=== PATIENT | male | born 1950 | race Caucasian/White ===

== ENCOUNTER 2016-12-12 10:55 | Inpatient (IN) | payer OTHER ==
[~2016-12-12] VITALS: Ht 184.2 cm; Wt 82.1 kg
[2016-12-12] VITALS (35 sets, daily range): BP systolic 108–195; BP diastolic 58–101; PULSE 54–84; RESP 13–25; Ht 184.2 cm; Wt 82.1 kg
--- NOTE | 2016-12-12 07:38 | PREOPHP ---
DATE OF ADMISSION: 12/12/2016 The patient was originally seen in our office for evaluation of low back pain, pain going to the hip s and to the thighs. The patient was having difficulty with ambulation, was having difficulty sitti ng down for a period of time and could not walk more than a block. The patient was diagnosed with s evere stenosis at L3-L4. Conservative management was offered to the patient, physical therapy, as w ell as pain management, and the patient also receive epidural injections of the lumbar spine without much relief. The patient's condition was getting worse, pain was increasing, and the patient was h aving difficulty with activities of daily living. The only option left at this point was for surgic al intervention in the form of lumbar 3, lumbar 4 laminectomy with decompression of the lumbar spine . This procedure was described to the patient in great detail. The patient has consented and wants to proceed with surgical intervention. PAST MEDICAL HISTORY: Per chart. SURGICAL HISTORY: Per chart. SOCIAL HISTORY: Denies the use of drugs, alcohol or tobacco. ALLERGIES: Per chart. HOME MEDICATIONS: Per chart. FAMILY HISTORY: Unremarkable. REVIEW OF SYSTEMS: A 10-point review of systems was conducted. Pertinent positives per HPI, otherw ise negative. PHYSICAL EXAMINATION: GENERAL: The patient is awake, alert, oriented, follows commands properly. HEENT: Head atraumatic, normocephalic. Eyes, sclerae are clear, nonicteric. EOMs intact. No sign s of unremarkable. NECK: Supple. No thyromegaly. PULMONARY: No dyspnea, tachypnea. CARDIOVASCULAR: No JVD, no pedal edema. ABDOMEN: Soft, without guarding during exam. NEUROLOGIC: Awake, alert oriented. GCS 15. Cranial nerves intact. UPPER EXTREMITIES: Moves equally. Sensation intact. LOWER EXTREMITIES: Examination of both flexion and extension of the lumbar spine the patient has low back pain. Flexion/extension of the hips the patient develops low back pain. Knee flexion/extension is intact, as well as ankle flexion and ex tension. Bilaterally strength is equal. Sensation is intact. MRI of the lumbar spine dated 10/25/2016 shows severe stenosis of L3-L4. IMPRESSION: Lumbar 3, lumbar 4 severe stenosis with mechanical low back pain. RECOMMENDATION: The patient to undergo surgical intervention in the form of lumbar 3, lumbar 4 finley inectomy with possible fusion and the procedure was described to the patient in great detail. The complications were explained extensively. The patient wants to go ahead and proceed. Thereafte r the patient will be admitted to the hospital for further care and management. Dictated By: ROLAN LEGGETT/ARUN Conf#: [id number] DID#: [id number]
[2016-12-12] MEDS ORDERED: ROCURONIUM 50 MG INJ ONE (11:42)
[2016-12-12] MEDS ORDERED: CEFAZOLIN 1 GM INJ ONE (11:42)
[2016-12-12] MEDS ORDERED: SUCCINYLCHOLINE CHLORIDE 100 MG/5 ML SYG IV ONE (11:42)
[2016-12-12] MEDS ORDERED: PROPOFOL 100 ML ONE (11:42)
[2016-12-12] MEDS ORDERED: MIDAZOLAM 1 MG/ML 2 ML INJ ONE (11:43)
[2016-12-12] MEDS ORDERED: FENTAnyl 50 MCG/ML VIAL ONE (11:44)
[2016-12-12] MEDS ORDERED: LACO100T3 PO (12:06)
[2016-12-12] MEDS ORDERED: GELATIN SIZE 100 SPONGE ONE (12:21)
[2016-12-12] MEDS ORDERED: THROMBIN 5000 UNIT VIAL ONE (12:22)
[2016-12-12] MEDS ORDERED: LIDOCAINE 2%/EPI (MDV) 20ML INJ ONE (12:22)
[2016-12-12] MEDS ORDERED: POLYMYXIN/BACITRACIN 1L IRRIG ONE (12:22)
[2016-12-12 12:39] LABS: ADD SCAN DIFF NO
[2016-12-12 12:50] LABS: BASOPHILS % 0.7 % (0.0-2.0); EOSINOPHILS # 0.1 10^3/ul (0.0-0.5); EOSINOPHILS % 1.8 % (0.0-7.0); HEMATOCRIT 36.6 % (42.0-52.0); HEMOGLOBIN 12.7 g/dl (14.0-18.0); LYMPHOCYTES # 1.2 10^3/ul (0.8-2.9); LYMPHOCYTES % 25.6 % (15.0-51.0); MEAN CORPUSCULAR HEMOGLOBIN 32.9 pg (29.0-33.0); MEAN CORPUSCULAR HGB CONC 34.7 g/dl (32.0-37.0); MEAN CORPUSCULAR VOLUME 94.8 fl (82.0-101.0); MEAN PLATELET VOLUME 10.1 fl (7.4-10.4); MONOCYTE # 0.4 10^3/ul (0.3-0.9); MONOCYTES % 9.4 % (0.0-11.0); NEUTROPHIL # 2.9 10^3/ul (1.6-7.5); NEUTROPHILS % 62.3 % (39.0-77.0); PLATELET COUNT 120 10^3/UL (140-415); RED BLOOD COUNT 3.86 10^6/ul (4.70-6.10); RED CELL DISTRIBUTION WIDTH 12.8 % (11.5-14.5); WHITE BLOOD COUNT 4.6 10^3/ul (4.8-10.8)
[2016-12-12 12:56] LABS: INR 1.15; PROTIME 14.7 Sec (12.2-14.2); PT RATIO 1.1
[2016-12-12 12:56] LABS: ADD UMIC YES; UR ASCORBIC ACID NEGATIVE (NEGATIVE); UR BILIRUBIN (Dip) NEGATIVE (NEGATIVE); UR BLOOD (Dip) NEGATIVE (NEGATIVE); UR CLARITY CLEAR (CLEAR); UR COLOR YELLOW (YELLOW); UR GLUCOSE (Dip) NEGATIVE (NEGATIVE); UR KETONES (Dip) NEGATIVE (NEGATIVE); UR LEUKOCYTE ESTERASE (Dip) NEGATIVE Leu/ul (NEGATIVE); UR NITRITE (Dip) NEGATIVE (NEGATIVE); UR RBC 1 /HPF (0-5); UR SPECIFIC GRAVITY (Dip) 1.019 (1.003-1.030); UR TOTAL PROTEIN (Dip) 1+ mg/dl (NEGATIVE); UR UROBILINOGEN (Dip) NEGATIVE (NEGATIVE)
[2016-12-12 12:57] LABS: PARTIAL THROMBOPLASTIN TIME 27.5 Sec (25.0-35.0)
[2016-12-12] MEDS ORDERED: METOCLOPRAMIDE 10 MG INJ ONE (14:45)
[2016-12-12] MEDS ORDERED: ACETAMINOPHEN 1000MG/100ML IV 100 ML ONE (14:45)
[2016-12-12] MEDS ORDERED: DEXAMETHASONE 4 MG/ML 1 ML INJ ONE (14:45)
[2016-12-12] MEDS ORDERED: ONDANSETRON 4 MG INJ ONE (14:45)
[2016-12-12] MEDS ORDERED: NEOSTIGMINE 3 MG/3 ML SYRINGE ONE (15:13)
[2016-12-12] MEDS ORDERED: GLYCOPYRROLATE 1 MG INJ ONE (15:13)
[2016-12-12] MEDS ORDERED: DIPHENHYDRAMINE 50 MG INJ IV PRN (15:30)
[2016-12-12] MEDS ORDERED: MEPERIDINE 25 MG INJ IV PRN (15:30)
[2016-12-12] MEDS ORDERED: HYDROmorphONE (0.2 MG/ML) 10ML SYG IV PRN ×3 (15:30)
[2016-12-12] MEDS ORDERED: ONDANSETRON 4 MG INJ IV PRN ×2 (15:30)
[2016-12-12] MEDS ORDERED: EPHEDrine SULFATE 50 MG/5 ML SYG IV PRN (15:30)
[2016-12-12] MEDS ORDERED: METOCLOPRAMIDE 10 MG INJ IV PRN (15:30)
[2016-12-12] MEDS ORDERED: morphine 2 MG INJ IV PRN (15:30)
[2016-12-12] MEDS ORDERED: LABETALOL HCL 20MG INJ IV PRN (15:30)
[2016-12-12] MEDS ORDERED: morphine (1 MG/ML) 10ML SYRINGE IV PRN ×2 (15:30)
[2016-12-12] MEDS ORDERED: ALBUMIN HUMAN 5% 250 ML IV PRN (15:30)
[2016-12-12] MEDS ORDERED: ACETAMINOPHEN 325 MG TAB PO PRN (16:00)
--- NOTE | 2016-12-12 16:34 | RADRPT ---
PROCEDURE: Intraoperative fluoroscopy. CLINICAL INDICATION: Intraoperative fluoroscopy during lumbar spine surgery. TECHNIQUE: 7 spot intraoperative fluoroscopic images were provided. The images were reviewed on a high-resolution PACS workstation. COMPARISON: None available FINDINGS: Multiple spot intraoperative fluoroscopic views were provided during lumbar spine surgery. The imag es demonstrate and the cephalic probe at the level of L4. Subsequent images demonstrate postoperati ve changes at the L3-4 level. The total fluoroscopy time was 15.1 seconds. IMPRESSION: 1. Multiple spot intraoperative fluoroscopic views during lumbar spine surgery were provided. 2. Please see operative report of the same day for further information. RPTAT: HGAS .Manjinder Luna MD, Date Time Electronically viewed and signed by .Manjinder Luna MD, MD on 12/12/2016 16:34 .S/
--- NOTE | 2016-12-12 16:40 | HP ---
DATE OF ADMISSION: 12/12/2016 CHIEF COMPLAINT AND HISTORY OF PRESENT ILLNESS: History is obtained from medical record as the enedina ent is lethargic. The patient is a 66-year-old gentleman with a history of seizure disorder, stable on Vimpat. The patient had been seeing Dr. Lorenzo Murillo as an outpatient for lower back pain goi ng on for 3 years. The pain was radiating to bilateral lower extremities. Patient was diagnosed wi th severe stenosis of L3 to L4. The patient initially was treated with physical therapy and pain m anagement. However, the patient also received epidural injection. The patient continues to remain symptomatic and started just getting worse. Patient was having difficulty in walking. The patient was brought in to hospital today and underwent L3 to L4 laminectomy. The patient postoperatively is lethargic, although breathing comfortably. Vital signs have remained stable. No reported vomiting , no reported seizures since surgery. No reported temperature spike. The patient does not have cristina ma in any extremities. REVIEW OF SYSTEMS: Limited. PAST SURGICAL HISTORY: Status post tonsillectomy. FAMILY HISTORY: Mother at age 85 of natural causes. Father at age 86, had martell ry artery disease. SOCIAL HISTORY: Smokes cigars intermittently. ALLERGIES: NONE. MEDICATIONS: Prior to admission: 1. Ibuprofen 800 mg t.i.d. as needed. 2. Vimpat ____ mg b.i.d. PHYSICAL EXAMINATION: GENERAL: The patient is lethargic. VITAL SIGNS: Temperature 98.5, pulse 71, respirations 16, blood pressure 168/96, O2 saturation 97% on room air. HEENT: No eye discharge or redness. Oropharynx examination deferred due to face mask. NECK: No mass, no JVD. LUNGS: Clear to auscultation. CARDIOVASCULAR: S1, S2 normal. No murmur. ABDOMEN: Soft, nondistended, no palpable mass. EXTREMITIES: No leg edema. Pedal pulses palpable. NEUROLOGIC: The patient is lethargic and therefore detailed neuro examination was deferred. LABORATORY DATA: WBC 4.6, hemoglobin 12.7, platelets 120. Chemistry: Sodium 137, potassium level prior to surgery was not available in medical record. Glucose 91. AST 63, ALT 76. EKG normal sinu s rhythm, no acute ST or T changes. Chest x-ray unremarkable. IMPRESSION: 1. Magnetic resonance angiogram proven severe stenosis of L3 to L4 with chronic low back pain statu s post L3 and L4 laminectomy. 2. Seizure disorder. PLAN: The patient admitted on medical floor. Patient will be started on IV fluid and will be start ed on clear liquid diet, advance as tolerated. The patient will have SCD for DVT prophylaxis and wi ll receive IV cefazolin as per protocol. Will use clonidine on p.r.n. basis for hypertension, IV mo rphine, Tylenol and [place] for pain control, depending upon severity. We will continue to follow him from a medical standpoint. Dictated By: CATHLEEN PUENTE/NTS Conf#: [id number] DID#: [id number]
[2016-12-12] MEDS ORDERED: hydrALAzine 20 MG INJ ONE (16:50)
[2016-12-12] MEDS: DEXTROSE 5%-LR 1,000 ML IV SCH (18:19)
[2016-12-12] MEDS: LACOSAMIDE (100 MG/10 ML PO SYR) PO SCH (21:26)
[2016-12-12] MEDS: CEFAZOLIN 1 GM/50 ML (PMX) 50 ML IVPB SCH (21:53)
[2016-12-12] MEDS: HYDROCODONE/APAP (10/325) TAB PO PRN (23:51)
[2016-12-13 01:00] VITALS: BP 109/56; PULSE 68
[2016-12-13 02:00] VITALS: BP 108/57; PULSE 63
[2016-12-13 05:38] VITALS: BP 116/63; PULSE 63; RESP 17
[2016-12-13 06:14] LABS: ADD SCAN DIFF NO
[2016-12-13 06:18] LABS: BASOPHILS % 0.1 % (0.0-2.0); HEMATOCRIT 36.5 % (42.0-52.0); HEMOGLOBIN 12.4 g/dl (14.0-18.0); LYMPHOCYTES # 0.8 10^3/ul (0.8-2.9); LYMPHOCYTES % 7.8 % (15.0-51.0); MEAN CORPUSCULAR HEMOGLOBIN 32.7 pg (29.0-33.0); MEAN CORPUSCULAR VOLUME 96.3 fl (82.0-101.0); MEAN PLATELET VOLUME 10.6 fl (7.4-10.4); MONOCYTE # 0.8 10^3/ul (0.3-0.9); MONOCYTES % 7.5 % (0.0-11.0); NEUTROPHIL # 8.6 10^3/ul (1.6-7.5); NEUTROPHILS % 84.2 % (39.0-77.0); PLATELET COUNT 131 10^3/UL (140-415); RED BLOOD COUNT 3.79 10^6/ul (4.70-6.10); RED CELL DISTRIBUTION WIDTH 12.9 % (11.5-14.5); WHITE BLOOD COUNT 10.2 10^3/ul (4.8-10.8)
[2016-12-13] MEDS: CEFAZOLIN 1 GM/50 ML (PMX) 50 ML IVPB SCH ×3 (06:32→21:31)
[2016-12-13] MEDS: DEXTROSE 5%-LR 1,000 ML IV SCH ×3 (06:36→19:59)
[2016-12-13 06:52] LABS: ALBUMIN 4.1 g/dl (3.3-4.9); ALBUMIN/GLOBULIN RATIO 1.36; BILIRUBIN,INDIRECT 0.4 mg/dl (0-1.1); BILIRUBIN,TOTAL 0.4 mg/dl (0.2-1.3); CALCIUM 8.8 mg/dl (8.4-10.2); CREATININE 0.72 mg/dl (0.61-1.24); TOTAL PROTEIN 7.1 g/dl (6.1-8.1)
[2016-12-13 07:00] VITALS: BP 115/60; RESP 20
[2016-12-13] MEDS: LACOSAMIDE (100 MG/10 ML PO SYR) PO SCH ×2 (08:44→20:55)
[2016-12-13] MEDS: HYDROCODONE/APAP (10/325) TAB PO PRN ×2 (08:48→17:12)
--- NOTE | 2016-12-13 19:24 | PN ---
Date/Time of Note Date/Time of Note DATE: 12/13/16 TIME: 19:22 Assessment/Plan VTE Prophylaxis VTE Prophylaxis Intervention: SCD's Lines/Catheters IV Catheter Type (from Nrs): Peripheral IV Urinary Cath still in place: No Assessment/Plan Chief Complaint/Hosp Course Patient's complains of pain, however able to ambulate with no problems. Problems: Assessment/Plan 1. Severe stenosis of L3 to L4 with chronic low back pain status post L3 and L4 laminectomy. Continue [place] and morphine for pain, continue postoperative antibiotics follow-up surgical recommendation. 2. Seizure disorder. Continue Vimpat. Further recommendations based on clinical course. Plan of care discussed with Dr. Lee. Exam/Review of Systems Vital Signs Vitals Vital Signs Date Time Temp Pulse Resp B/P Pulse Ox O2 Delivery O2 Flow Rate FiO2 12/13/16 07:00 98.3 60 20 115/60 97 12/13/16 05:38 Room Air Intake and Output 12/12/16 12/12/16 12/13/16 15:00 23:00 07:00 Intake Total 1300 ml 870 ml Output Total 200 ml 1100 ml Balance 1100 ml -230 ml Exam Constitutional: alert, oriented Head: atraumatic, normocephalic Neck: non-tender, supple Respiratory: normal air movement Cardiovascular: nl pulses Gastrointestinal: non-tender, soft Musculoskeletal: other (Low back surgical incision was drain) Extremities: normal pulses Neurological: nl mental status Results Result Diagram: 12/13/16 0440 12/13/16 0440 Results 24 hrs Laboratory Tests Test 12/13/16 04:40 12/13/16 06:38 White Blood Count 10.2 # Red Blood Count 3.79 L Hemoglobin 12.4 L Hematocrit 36.5 L Mean Corpuscular Volume 96.3 Mean Corpuscular Hemoglobin 32.7 Mean Corpuscular Hemoglobin Concent 34.0 Red Cell Distribution Width 12.9 Platelet Count 131 L Mean Platelet Volume 10.6 H Neutrophils % 84.2 H Lymphocytes % 7.8 L Monocytes % 7.5 Eosinophils % 0.0 Basophils % 0.1 Nucleated Red Blood Cells % 0.0 Neutrophils # 8.6 H Lymphocytes # 0.8 Monocytes # 0.8 Eosinophils # 0.0 Basophils # 0.0 Nucleated Red Blood Cells # 0.0 Sodium Level 139 Potassium Level 4.0 Chloride Level 103 Carbon Dioxide Level 27 Anion Gap 13 Blood Urea Nitrogen 13 Creatinine 0.72 Glucose Level 143 Calcium Level 8.8 Total Bilirubin 0.4 Direct Bilirubin 0.00 Indirect Bilirubin 0.4 Aspartate Amino Transf (AST/SGOT) 56 H Alanine Aminotransferase (ALT/SGPT) 68 Alkaline Phosphatase 46 Total Protein 7.1 Albumin 4.1 Globulin 3.00 Albumin/Globulin Ratio 1.36 Lab Scanned Report REFERENCE LAB Medications Medications Current Medications Cefazolin Sodium (Ancef 1 Gm/50 ml (Pmx)) 50 ml @ 100 mls/hr Q8 IVPB Last administered on 12/13/16 14:03; Admin Dose 100 MLS/HR; Start 12/12/16 at 22:00 ; Stop 12/13/16 at 22:00 Acetaminophen/ Hydrocodone Bitart ([place] (10)) 1 tab Q4H PRN PO PAIN Last administered on 12/13/16 17:12; Admin Dose 1 TAB; Start 12/12/16 at 15:30 Morphine Sulfate 2 mg 2 mg Q3H PRN IV severe pain; Start 12/12/16 at 15:30 Dextrose/Lactated Ringer's (D5-Lr) 1,000 ml @ 75 mls/hr [id number] IV Last administered on 12/13/16 06:36; Admin Dose 75 MLS/HR; Start 12/12/16 at 15:30 Ondansetron HCl (Zofran Inj) 4 mg Q6H PRN IV NAUSEA AND/OR VOMITING; Start at 15:30 Clonidine (Catapres) 0.1 mg Q4H PRN PO sbp>160 Last administered on 12/12/16 18:28; Admin Dose 0.1 MG; Start 12/12/16 at 15:30 Lacosamide (Vimpat Liq) 100 mg BID PO Last administered on 12/13/16 08:44; Admin Dose 100 MG; Start 12/12/16 at 21:00 Acetaminophen (Tylenol Tab) 650 mg Q4H PRN PO PAIN AND OR ELEVATED TEMP; Start 12/12/16 at 16:00 GRAYSON MUÑOZ Dec 13, 2016 19:24
[2016-12-13 19:45] VITALS: BP 150/80; RESP 18
[2016-12-14] VITALS: BP 150/90; RESP 18
[2016-12-14] MEDS: HYDROCODONE/APAP (10/325) TAB PO PRN ×5 (00:24→20:59)
[2016-12-14 05:09] LABS: ADD SCAN DIFF NO
[2016-12-14 05:16] LABS: BASOPHILS % 0.4 % (0.0-2.0); EOSINOPHILS # 0.1 10^3/ul (0.0-0.5); EOSINOPHILS % 0.6 % (0.0-7.0); HEMATOCRIT 37.9 % (42.0-52.0); HEMOGLOBIN 12.7 g/dl (14.0-18.0); LYMPHOCYTES # 1.8 10^3/ul (0.8-2.9); LYMPHOCYTES % 22.2 % (15.0-51.0); MEAN CORPUSCULAR HEMOGLOBIN 32.3 pg (29.0-33.0); MEAN CORPUSCULAR HGB CONC 33.5 g/dl (32.0-37.0); MEAN CORPUSCULAR VOLUME 96.4 fl (82.0-101.0); MEAN PLATELET VOLUME 10.5 fl (7.4-10.4); MONOCYTES % 11.9 % (0.0-11.0); NEUTROPHIL # 5.2 10^3/ul (1.6-7.5); NEUTROPHILS % 64.5 % (39.0-77.0); PLATELET COUNT 118 10^3/UL (140-415); RED BLOOD COUNT 3.93 10^6/ul (4.70-6.10); RED CELL DISTRIBUTION WIDTH 12.8 % (11.5-14.5); WHITE BLOOD COUNT 8.1 10^3/ul (4.8-10.8)
[2016-12-14 05:44] LABS: CALCIUM 9.3 mg/dl (8.4-10.2); CREATININE 0.72 mg/dl (0.61-1.24); POTASSIUM 3.6 mmol/L (3.5-5.1)
[2016-12-14 07:00] VITALS: BP 159/92; RESP 20
[2016-12-14] MEDS: LACOSAMIDE (100 MG/10 ML PO SYR) PO SCH ×2 (08:40→21:00)
--- NOTE | 2016-12-14 08:58 | CONS ---
Date/Time of Note Date/Time of Note DATE: 12/14/16 TIME: 08:57 Assessment/Plan Assessment/Plan Additional Assessment/Plan seen/examined awake/alert/follows/moves all/sensation intact pt ambulates ok drain dced cleared to go home instructions given outpt fu 1 week Consultation Date/Type/Reason Admit Date/Time Dec 12, 2016 at 11:12 Initial Consult Date Exam/Review of Systems Vital Signs Vitals Vital Signs Date Time Temp Pulse Resp B/P Pulse Ox O2 Delivery O2 Flow Rate FiO2 12/14/16 07:00 98.4 56 20 159/92 97 12/13/16 05:38 Room Air Intake and Output 12/13/16 12/13/16 12/14/16 15:00 23:00 07:00 Intake Total 50 ml 2225 ml 1000 ml Output Total 890 ml 0 ml Balance 50 ml 1335 ml 1000 ml Results Result Diagram: 12/14/16 0437 12/14/16 0437 Results 24 hrs Laboratory Tests Test 12/14/16 04:37 White Blood Count 8.1 # Red Blood Count 3.93 L Hemoglobin 12.7 L Hematocrit 37.9 L Mean Corpuscular Volume 96.4 Mean Corpuscular Hemoglobin 32.3 Mean Corpuscular Hemoglobin Concent 33.5 Red Cell Distribution Width 12.8 Platelet Count 118 L Mean Platelet Volume 10.5 H Neutrophils % 64.5 Lymphocytes % 22.2 Monocytes % 11.9 H Eosinophils % 0.6 Basophils % 0.4 Nucleated Red Blood Cells % 0.0 Neutrophils # 5.2 Lymphocytes # 1.8 Monocytes # 1.0 H Eosinophils # 0.1 Basophils # 0.0 Nucleated Red Blood Cells # 0.0 Sodium Level 139 Potassium Level 3.6 Chloride Level 103 Carbon Dioxide Level 29 Anion Gap 11 Blood Urea Nitrogen 12 Creatinine 0.72 Glucose Level 109 Calcium Level 9.3 Medications Medications Current Medications Acetaminophen/ Hydrocodone Bitart ([place] (10/325)) 1 tab Q4H PRN PO PAIN Last administered on 12/14/16t 06:35; Admin Dose 1 TAB; Start 12/12/16 at 15:30 Morphine Sulfate 2 mg 2 mg Q3H PRN IV severe pain; Start 12/12/16 at 15:30 Dextrose/Lactated Ringer's (D5-Lr) 1,000 ml @ 75 mls/hr [id number] IV Last administered on 12/13/16 19:59; Admin Dose 75 MLS/HR; Start 12/12/16 at 15:30 Ondansetron HCl (Zofran Inj) 4 mg Q6H PRN IV NAUSEA AND/OR VOMITING; Start at 15:30 Clonidine (Catapres) 0.1 mg Q4H PRN PO sbp>160 Last administered on 12/12/16 18:28; Admin Dose 0.1 MG; Start 12/12/16 at 15:30 Lacosamide (Vimpat Liq) 100 mg BID PO Last administered on 12/14/16 08:40; Admin Dose 100 MG; Start 12/12/16 at 21:00 Acetaminophen (Tylenol Tab) 650 mg Q4H PRN PO PAIN AND OR ELEVATED TEMP; Start 12/12/16 at 16:00 JERMAINE LIMA PA-C Dec 14, 2016 08:58
--- NOTE | 2016-12-14 12:35 | PN ---
Date/Time of Note Date/Time of Note DATE: 12/14/16 TIME: 12:34 Assessment/Plan VTE Prophylaxis VTE Prophylaxis Intervention: other Lines/Catheters IV Catheter Type (from Nrsg): Peripheral IV Urinary Cath still in place: No Assessment/Plan Chief Complaint/Hosp Course 1. Severe stenosis of L3 to L4 with chronic low back pain status post L3 and L4 laminectomy. Continue [place] and morphine for pain, continue postoperative antibiotics follow-up surgical recommendation. 2. Seizure disorder. Continue Vimpat. Problems: Subjective 24 Hr Interval Summary Free Text/Dictation Patient still has some pain, feels that he will be able to go home tomorrow Exam/Review of Systems Vital Signs Vitals Vital Signs Date Time Temp Pulse Resp B/P Pulse Ox O2 Delivery O2 Flow Rate FiO2 12/14/16 07:00 98.4 56 20 159/92 97 12/13/16 05:38 Room Air Intake and Output 12/13/16 12/13/16 12/14/16 15:00 23:00 07:00 Intake Total 50 ml 2225 ml 1000 ml Output Total 890 ml 0 ml Balance 50 ml 1335 ml 1000 ml Exam Constitutional: well developed Head: atraumatic, normocephalic Neck: supple Respiratory: clear to auscultation Cardiovascular: regular rate and rhythm Gastrointestinal: non-tender, soft Extremities: normal pulses Results Result Diagram: 12/14/16 0437 12/14/16 0437 Results 24 hrs Laboratory Tests Test 12/14/16 04:37 White Blood Count 8.1 # Red Blood Count 3.93 L Hemoglobin 12.7 L Hematocrit 37.9 L Mean Corpuscular Volume 96.4 Mean Corpuscular Hemoglobin 32.3 Mean Corpuscular Hemoglobin Concent 33.5 Red Cell Distribution Width 12.8 Platelet Count 118 L Mean Platelet Volume 10.5 H Neutrophils % 64.5 Lymphocytes % 22.2 Monocytes % 11.9 H Eosinophils % 0.6 Basophils % 0.4 Nucleated Red Blood Cells % 0.0 Neutrophils # 5.2 Lymphocytes # 1.8 Monocytes # 1.0 H Eosinophils # 0.1 Basophils # 0.0 Nucleated Red Blood Cells # 0.0 Sodium Level 139 Potassium Level 3.6 Chloride Level 103 Carbon Dioxide Level 29 Anion Gap 11 Blood Urea Nitrogen 12 Creatinine 0.72 Glucose Level 109 Calcium Level 9.3 Medications Medications Current Medications Acetaminophen/ Hydrocodone Bitart ([place] (10)) 1 tab Q4H PRN PO PAIN Last administered on 12/14/16 06:35; Admin Dose 1 TAB; Start 12/12/16 at 15:30 Morphine Sulfate 2 mg 2 mg Q3H PRN IV severe pain; Start 12/12/16 at 15:30 Dextrose/Lactated Ringer's (D5-Lr) 1,000 ml @ 75 mls/hr [id number] IV Last administered on 12/13/16 19:59; Admin Dose 75 MLS/HR; Start 12/12/16 at 15:30 Ondansetron HCl (Zofran Inj) 4 mg Q6H PRN IV NAUSEA AND/OR VOMITING; Start at 15:30 Clonidine (Catapres) 0.1 mg Q4H PRN PO sbp>160 Last administered on 12/12/16 18:28; Admin Dose 0.1 MG; Start 12/12/16 at 15:30 Lacosamide (Vimpat Liq) 100 mg BID PO Last administered on 12/14/16 08:40; Admin Dose 100 MG; Start 12/12/16 at 21:00 Acetaminophen (Tylenol Tab) 650 mg Q4H PRN PO PAIN AND OR ELEVATED TEMP; Start 12/12/16 at 16:00 ANDRÉS MORROW Dec 14, 2016 12:34
[2016-12-14 19:25] VITALS: BP 172/102; RESP 18
[2016-12-15] VITALS: BP 115/63; RESP 18
[2016-12-15] MEDS: HYDROCODONE/APAP (10/325) TAB PO PRN ×2 (08:15→16:43)
[2016-12-15 08:53] VITALS: BP 151/87; RESP 20
[2016-12-15] MEDS: LACOSAMIDE (100 MG/10 ML PO SYR) PO SCH ×2 (09:31→20:40)
--- NOTE | 2016-12-15 12:29 | PN ---
Date/Time of Note Date/Time of Note DATE: 12/15/16 TIME: 12:28 Assessment/Plan VTE Prophylaxis VTE Prophylaxis Intervention: other Lines/Catheters IV Catheter Type (from Nrsg): [place] Urinary Cath still in place: No Assessment/Plan Chief Complaint/Hosp Course 1. Severe stenosis of L3 to L4 with chronic low back pain status post L3 and L4 laminectomy. Continue [place] and morphine for pain, continue postoperative antibiotics follow-up surgical recommendation. 2. Seizure disorder. Continue Vimpat. Problems: Subjective 24 Hr Interval Summary Free Text/Dictation Patient has pain in lower back still Exam/Review of Systems Vital Signs Vitals Vital Signs Date Time Temp Pulse Resp B/P Pulse Ox O2 Delivery O2 Flow Rate FiO2 12/15/16 08:53 98.7 78 20 151/87 97 12/13/16 05:38 Room Air Intake and Output 12/14/16 12/14/16 12/15/16 15:00 23:00 07:00 Intake Total 1000 ml 750 ml 450 ml Output Total 550 ml Balance 450 ml 750 ml 450 ml Exam Constitutional: well developed Head: atraumatic, normocephalic Neck: supple Respiratory: clear to auscultation Cardiovascular: regular rate and rhythm Gastrointestinal: non-tender, soft Extremities: normal pulses Results Result Diagram: 12/14/1643612/14/16436 Medications Medications Current Medications Acetaminophen/ Hydrocodone Bitart ([place] (10/325)) 1 tab Q4H PRN PO PAIN Last administered on 12/15/16 08:15; Admin Dose 1 TAB; Start 12/12/16 at 15:30 Morphine Sulfate (morphine) 2 mg Q3H PRN IV severe pain; Start 12/12/16 at 15: 30 Ondansetron HCl (Zofran Inj) 4 mg Q6H PRN IV NAUSEA AND/OR VOMITING; Start at 15:30 Clonidine (Catapres) 0.1 mg Q4H PRN PO sbp>160 Last administered on 12/14/16 21:00; Admin Dose 0.1 MG; Start 12/12/16 at 15:30 Lacosamide (Vimpat Liq) 100 mg BID PO Last administered on 12/15/16 09:31; Admin Dose 100 MG; Start 12/12/16 at 21:00 Acetaminophen (Tylenol Tab) 650 mg Q4H PRN PO PAIN AND OR ELEVATED TEMP; Start 12/12/16 at 16:00 ANDRÉS MORROW Dec 15, 2016 12:29
[2016-12-15 20:33] VITALS: BP 134/77; RESP 18
[2016-12-16 08:20] VITALS: BP 153/84; RESP 22
[2016-12-16] MEDS: LACOSAMIDE (100 MG/10 ML PO SYR) PO SCH (08:55)
[2016-12-16] MEDS ORDERED: HYDR-906 PO (17:02)
--- NOTE | 2016-12-20 20:30 | DS ---
Date/Time of Note Date/Time of Note DATE: 12/20/16 TIME: 20:28 Discharge Summary Admission/Discharge Info Admit Date/Time Dec 12, 2016 at 11:12 Discharge Date/Time Dec 16, 2016 at 19:20 Discharge Diagnosis - Severe stenosis of L3 to L4 with chronic low back pain status post L3 and L4 laminectomy. Patient Condition: Good Hospital Course 1. Severe stenosis of L3 to L4 with chronic low back pain status post L3 and L4 laminectomy. Continue [place] and morphine for pain, continue postoperative antibiotics follow-up surgical recommendation. 2. Seizure disorder. Continue Vimpat. Home Meds Active Scripts Hydrocodone/Acetaminophen ([place] 5-325 Tablet) 1 Each Tablet, 1 EACH PO Q4 for PAIN, #30 TAB Prov:GRAYSON MUÑOZ 12/16/16 Reported Medications Lacosamide (Vimpat) 100 Mg Tablet, 100 MG PO BID, TAB 12/12/16 Follow-up Plan f/up with Dr Travis in 2 weeks. Primary Care Provider MD WANDA Lindsay SVETLANA Dec 20, 2016 20:30
== END 2016-12-16 19:20 | disposition home or self-care (01) | DRG 520 ==
LOC: REC 11:12 → EDSEX 11:12 → MS1 17:55
PROVIDERS: ADMIT Neurological Surgery; ATTEND Neurological Surgery
PROC: 0SB20ZZ Excision of Lumbar Vertebral Disc, Open Approach (ICD-10-PCS; 2016-12-12)
PROC: 01NB0ZZ Release Lumbar Nerve, Open Approach (ICD-10-PCS; principal; 2016-12-12 13:00)
DX: M51.16 Intervertebral disc disorders with radiculopathy, lumbar region (principal); I10 Essential (primary) hypertension; M48.06 Spinal stenosis, lumbar region; G40.909 Epilepsy, unspecified, not intractable, without status epilepticus; B18.2 Chronic viral hepatitis C
CPT/HCPCS: 72100; 80048; 80053; 81001; 85025; 85610; 85730; 86900; 86901; 88304; 97116; 97162; 97530; J0131; J0360; J0690; J1100; J2250; J2405; J2710; J2765; J3010; J7121; J7999

== ENCOUNTER 2018-08-11 07:51 | Day surgery (SDC) | payer OTHER ==
[~2018-08-11] VITALS: Ht 185.4 cm; Wt 77.7 kg
[2018-08-11] VITALS (14 sets, daily range): BP systolic 134–183; BP diastolic 59–104; PULSE 55–96; RESP 14–26; Ht 185.4 cm; Wt 77.7 kg
[~2018-08-11 07:51] MED LIST: HYDR-4011 PO; LACO100T3 PO
[2018-08-11] MEDS ORDERED: CEFAZOLIN 2 GM/50 ML (PMX) 50 ML IVPB ONE (08:00)
[2018-08-11] MEDS ORDERED: SOD CHLORIDE 0.9% 1,000 ML IV SCH (08:00)
[2018-08-11] MEDS ORDERED: BENA20TA4 PO (08:33)
[2018-08-11] MEDS ORDERED: LIDOCAINE 1% (MPF) 30 ML INJ ONE (09:26)
[2018-08-11] MEDS ORDERED: BUPIVACAINE 0.5%/EPI (SDV) 30 ML INJ ONE (09:26)
--- NOTE | 2018-08-11 09:29 | HPN ---
Date/Time of Note Date/Time of Note DATE: 08/11/18 TIME: 09:29 Interval H&P Admission Note Pt. seen H&P reviewed: No system changes JOSÉ MIGUEL BONDS Aug 11, 2018 09:29
--- NOTE | 2018-08-11 09:30 | PREAC ---
Date/Time of Note Date/Time of Note DATE: 08/11/18 TIME: 09:28 Anesthesia Eval and Record Evaluation Time Pre-Procedure Interview DATE: 08/11/18 TIME: 09:28 Age 68 Sex male NPO: 8 hrs Preoperative diagnosis bilateral inguinal hernia Planned procedure lap bilateral inguinal hernia removal Past Medical History Past Medical History: Includes Cardio: HTN Pulm: Smoking Hx (1 ea/ day, last smoking 2days ago, occsional mj user) Recreational drugs: Marijuana Surgery & Anesthesia Issues No known issue Meds Anticoagulation: No Beta Sarita within 24 hr: No Reason Beta Sarita not given: Pt. not on B-Sarita Reported Medications Benazepril Hcl* (Benazepril Hcl*) 20 Mg Tablet, 20 MG PO DAILY, #30 TAB 08/11/18 Discontinued Reported Medications Lacosamide (Vimpat) 100 Mg Tablet, 100 MG PO BID, TAB 12/12/16 Discontinued Scripts Hydrocodone/Acetaminophen ([place] 5-325 Tablet) 1 Each Tablet, 1 EACH PO Q4 for PAIN, #30 TAB Prov:MYRIAM MUÑOZLANA 12/16/16 Current Medications Sodium Chloride 1,000 ml @ 75 mls/hr [id number] IV ; Start 08/11/18 at 08:00; Stop 08/11/18 at 21:19 Meds reviewed: Yes Allergies Coded Allergies: shellfish derived (Verified Allergy, Unknown, 08/11/18) Allergies Reviewed: Yes Labs/Studies Labs Reviewed: Reviewed by anesthesiologist Result Diagram: 08/11/18 0840 Laboratory Tests 08/11/18 08:40 test: N/A Pre-procedure Exam Last vitals Vital Signs Date Temp Pulse Resp B/P (MAP) Pulse Ox O2 O2 Flow FiO2 Time Delivery Rate 08/11/18 97.9 55 16 145/82 98 Room Air 08:11 (103) Airway: Adequate mouth opening, Adequate thyromental dist Mallampati: Mallampati II Teeth: Normal Lung: Normal Heart: Normal ASA Physical Status ASA physical status: 2 Emergency: None Planned Anesthetic General/MAC: ETT Pre-operative Attestations Prior to commencing anesthesia and surgery, the patient was re-evaluated, there was verification of: *The patient's identity *The results of appropriate recent lab work and preoperative vital signs *The above evaluation not changing prior to induction *Anesthetic plan, risk benefits, alternative and complications discussed with patient/family; questions answered; patient/family understands, accepts and wishes to proceed. RUBEN RICE CRNA Aug 11, 2018 09:30
[2018-08-11] MEDS ORDERED: PROPOFOL 20 ML ONE (09:37)
[2018-08-11] MEDS ORDERED: ROCURONIUM 50 MG INJ ONE (09:37)
[2018-08-11] MEDS ORDERED: LIDOCAINE 2% (SDV) 5 ML INJ ONE (09:37)
[2018-08-11] MEDS ORDERED: DEXAMETHASONE 4 MG/ML 5 ML INJ ONE (09:38)
[2018-08-11] MEDS ORDERED: FENTAnyl 50 MCG/ML VIAL ONE ×2 (09:38→10:45)
[2018-08-11] MEDS ORDERED: MIDAZOLAM 1 MG/ML 2 ML INJ ONE (09:38)
[2018-08-11] MEDS ORDERED: CEFAZOLIN 1 GM INJ ONE (09:38)
[2018-08-11] MEDS ORDERED: ONDANSETRON 4 MG INJ ONE (09:38)
[2018-08-11] MEDS ORDERED: FENTAnyl 50 MCG/ML VIAL IV PRN (10:00)
[2018-08-11] MEDS ORDERED: hydrALAzine 20 MG INJ IV PRN (10:00)
[2018-08-11] MEDS ORDERED: ONDANSETRON 4 MG INJ IV PRN (10:00)
[2018-08-11] MEDS ORDERED: LABETALOL HCL 20MG INJ IV PRN (10:00)
[2018-08-11] MEDS ORDERED: SUGAMMADEX SODIUM 200 MG/2 ML VIAL IV ONE (10:33)
[2018-08-11] MEDS ORDERED: KETOROLAC 30 MG INJ ONE (12:46)
[2018-08-11] MEDS: HYDROmorphONE 1 MG/5 ML IV SYRINGE IV PRN ×2 (13:31→13:46)
[2018-08-11] MEDS ORDERED: MEPERIDINE 25 MG INJ ONE (13:37)
--- NOTE | 2018-08-11 13:41 | OPR ---
Date/Time of Note Date/Time of Note DATE: 08/11/18 TIME: 13:31 Operative Report Procedure Date: Aug 11, 2018 Preoperative Diagnosis bilateral inguinal hernias Postoperative Diagnosis bilateral inguinal hernias bilateral lipoma of the cord Operation/Procedure Performed Laparoscopic bilateral inguinal hernia repair, reducible, nonobstructed Excision of spermatic cord lesion left Excision of spermatic cord lesion right Surgeon see signature line Consumer Analyst None Anesthesia Type: general Estimated Blood Loss: minimal Transfusion none Specimen Lipoma of the cord, right Lipoma of the cord, left Grafts/Implants none Complications none Pt Condition Post Procedure: stable Disposition: PACU Indications Patient presented with bilateral groin bulges that were causing pain. Workup revealed bilateral inguinal hernias for which she is being taken to the operating room for repair. Prior to procedure risks and benefits including bleeding infection hernia recurrence and possible pain were explained and informed consent was obtained Procedure Description Patient was laid supine on the OR table and time out was called. Abd and bilateral groins were prepped and draped in sterile manner. Abx given. A 12 mm incision was made at the umbilicus and the Veress needle entered until three clicks heard with reassuring saline test. Abd insufflated to 15 mm Hg. Abdomen entered with Optiview trocar under visualization. Area of entry inspected and no injury was noted. 2 additional ports were placed one on each side of the umbilicus. A 10 mm 30 degree camera was used. The left side was repaired first. The peritoneum was incised 18 cm superior to the pubic tubercle 6 cm lateral to the deep ring. Using electrocautery and the scissors a peritoneal flap was created from lateral to medially toward the umbilical ligament. The epigastric vessels were identified and kept out of the way. The peritoneal flap was created toward the pubic tubercle prior to lysing the peritoneum and dissecting it away from the gonadal structures. The space of Retzius was opened up taking care to stay away from the bladder medially. The dissection was carried inferiorly down to the pubic tubercle. Once the indirect and direct space were exposed a 15 cm macro porous polypropylene mesh was placed into the abdomen through the 12 mm port site. The mesh was laid at the medial border of the dissection and tacked to the pubic tubercle medially and laterally to the rectus muscle. Once the mesh was tacked the peritoneal flap was brought up over it and reapproximated using 4 tacks fully covering the mesh. We then turned our attention to the left side.The peritoneum was incised 18 cm superior to the pubic tubercle 6 cm lateral to the deep ring. Using electrocautery and the scissors a peritoneal flap was created from lateral to medially toward the umbilical ligament. The epigastric vessels were identified and kept out of the way. The peritoneal flap was created toward the pubic tubercle prior to lysing the peritoneum and dissecting it away from the gonadal structures. The space of Retzius was opened up taking care to stay away from the bladder medially. The dissection was carried inferiorly down to the pubic tubercle. Once the indirect and direct space were exposed a 15 cm macro porous polypropylene mesh was placed into the abdomen through the 12 mm port site. The mesh was laid at the medial border of the dissection and tacked to the pubic tubercle medially and laterally to the rectus muscle. Once the mesh was tacked the peritoneal flap was brought up over it and reapproximated using 4 tacks fully covering the mesh. Afterwards the camera was inserted into the left side trocar and the eric-close device was used to close the fascia at the site of the 12 mm trocar site. JOSÉ MIGUEL BONDS Aug 11, 2018 13:41
[2018-08-11] MEDS ORDERED: MEPERIDINE 50 MG INJ IV ONE (14:00)
[2018-08-11] MEDS ORDERED: MEPERIDINE 25 MG INJ IV ONE (14:00)
--- NOTE | 2018-08-11 14:09 | PAC ---
Date/Time of Note Date/Time of Note DATE: 08/11/18 TIME: 14:08 Post-Anesthesia Notes Post-Anesthesia Note Last documented vital signs Vital Signs Date Temp Pulse Resp B/P (MAP) Pulse Ox O2 O2 Flow FiO2 Time Delivery Rate 08/11/18 90 19 140/73 98 Room Air 13:55 (95) 08/11/18 98.7 13:04 Activity: WNL Respiratory function: WNL Cardiovascular function: WNL Mental status: Baseline Pain reasonably controlled: Yes Hydration appropriate: Yes Nausea/Vomiting absent: Yes RUBEN RICE CRNA Aug 11, 2018 14:09
[2018-08-11] MEDS ORDERED: ACETAMINOPHEN 500 MG TAB PO STA (15:01)
== END 2018-08-11 15:40 | disposition home or self-care (01) ==
LOC: SDS 07:51
PROVIDERS: ATTEND Surgery Surgical Critical Care
DX: K40.20 Bilateral inguinal hernia, without obstruction or gangrene, not specified as recurrent (principal); I10 Essential (primary) hypertension; F17.200 Nicotine dependence, unspecified, uncomplicated
CPT/HCPCS: 49650; 71045; 80053; 85025; 85610; 85730; 88304; 93005; J0360; J0690; J1100; J1170; J1885; J2175; J2250; J2405; J3010; Z7512; Z7610